=== PATIENT | female | born 1995 | race Two or more races ===

== ENCOUNTER 2022-11-10 07:40 | Emergency (ER) | payer MEDICAID, OTHER ==
[~2022-11-10] VITALS: Ht 154.9 cm; Wt 111.9 kg
[2022-11-10 07:53] VITALS: BP 119/78; PULSE 86; RESP 17; TEMP 98.9; O2SAT 97
[2022-11-10] MEDS ORDERED: QUET300T14 PO (10:19)
== END 2022-11-10 10:27 | disposition home or self-care (01) ==
LOC: ER 07:40
DX: F31.9 Bipolar disorder, unspecified (principal); F41.9 Anxiety disorder, unspecified; Z76.0 Encounter for issue of repeat prescription

== ENCOUNTER 2023-01-23 08:59 | Emergency (ER) | payer MEDICAID ==
[~2023-01-23] VITALS: Ht 154.9 cm; Wt 109.7 kg
[2023-01-23 08:59] VITALS: BP 124/81; PULSE 96; RESP 16; TEMP 97.1; O2SAT 97
[~2023-01-23 08:59] MED LIST: QUET300T14 PO
[2023-01-23] MEDS ORDERED: QUET300T14 PO (09:46)
== END 2023-01-23 09:49 | disposition home or self-care (01) ==
LOC: ER 08:59
DX: F31.9 Bipolar disorder, unspecified (principal); F41.9 Anxiety disorder, unspecified; Z76.0 Encounter for issue of repeat prescription

== ENCOUNTER 2023-03-08 08:53 | Emergency (ER) | payer MEDICAID ==
[~2023-03-08] VITALS: Ht 154.9 cm; Wt 110.8 kg
[2023-03-08 09:19] VITALS: BP 111/78; PULSE 93; RESP 16; TEMP 98.2; O2SAT 98
[2023-03-08] MEDS ORDERED: QUET300T14 PO (09:34)
== END 2023-03-08 09:40 | disposition home or self-care (01) ==
LOC: ER 08:53
DX: F41.9 Anxiety disorder, unspecified (principal); F31.9 Bipolar disorder, unspecified; Z76.0 Encounter for issue of repeat prescription; Z79.899 Other long term (current) drug therapy

== ENCOUNTER 2023-08-22 21:48 | Emergency (ER) | payer MEDICAID ==
[~2023-08-22] VITALS: Ht 154.9 cm; Wt 87.9 kg
[2023-08-23 02:32] VITALS: BP 107/73; PULSE 63; RESP 17; TEMP 97.4; O2SAT 100
[2023-08-23] MEDS ORDERED: QUET300T14 PO (02:35)
== END 2023-08-23 03:14 | disposition home or self-care (01) ==
LOC: ER 21:48
DX: F31.9 Bipolar disorder, unspecified (principal); F41.9 Anxiety disorder, unspecified; Z76.0 Encounter for issue of repeat prescription; Z79.899 Other long term (current) drug therapy

== ENCOUNTER 2024-01-09 09:57 | Emergency (ER) | payer MEDICAID ==
[~2024-01-09] VITALS: Ht 154.9 cm; Wt 81.4 kg
[2024-01-09 11:05] VITALS: BP 107/62; PULSE 77; RESP 14; TEMP 98.4; O2SAT 98
== END 2024-01-09 11:07 | disposition home or self-care (01) ==
LOC: ER 09:57
DX: F31.9 Bipolar disorder, unspecified (principal); F20.9 Schizophrenia, unspecified; F41.9 Anxiety disorder, unspecified; Z76.0 Encounter for issue of repeat prescription; Z79.899 Other long term (current) drug therapy

== ENCOUNTER 2024-03-16 07:59 | Emergency (ER) | payer MEDICAID ==
[~2024-03-16] VITALS: Ht 154.9 cm; Wt 82.0 kg
[2024-03-16] MEDS ORDERED: QUET300T14 PO (08:16)
--- NOTE | 2024-03-16 08:18 | ED.PDOC ---
History of Present Illness HPI Comments 28 y/o F, with a Hx of anxiety, bipolar disorder, and schizophrenia, presents [facility] c/o medication refill inquiry, today. Patient requests for her 300mg QD Seroquel medication for her anxiety and bipolar disorder to be refilled after running out of it 2x days ago. She denies having any symptoms at this time. Chief Complaint: Medical Clearance Time Seen by MD: 08:15 Primary Care Provider: ? Reviewed Notes: Nurses Notes, Medications, Allergies Allergies: Coded Allergies: NO KNOWN ALLERGIES (Unverified , 11/10/22) Home Meds Active Scripts Quetiapine Fumerate (Seroquel) 300 Mg Tab, 1 TAB PO QPM, #30 TAB 1 Refill Prov:JARRETT BENÍTEZ MD 03/16/24 Quetiapine Fumerate (Seroquel) 300 Mg Tab, 1 TAB PO QPM for 30 Days, #30 TAB 0 Refills Prov:ANDREA PARRA NP 02/11/24 Quetiapine Fumerate (Seroquel) 300 Mg Tab, 1 TAB PO QPM, #30 TAB 2 Refills Prov:YAMILETH ECHEVARRIA 08/23/23 Information Source: Patient Mode of Arrival: Ambulatory Severity: Moderate Timing: Days Duration: Since onset Prehospital treatment: None Past Medical History PAST MEDICAL HISTORY: Anxiety, Schizophrenia Past Medical History (Other): bipolar disorder Surgical History: Denies all surgeries SUPERVISOR FINISHING History: Denies all SUPERVISOR FINISHING Hx Family History Family History: Reviewed,noncontributory to illness Social History Smoker: Non-Smoker Alcohol: Denies ETOH Use Drugs: Denies Drug Use Lives In: Home All Other Systems: Reviewed and Negative (negative unless otherwise listed above or in HPI) Physical Exam General Appearance: No Apparent Distress, Normal HEENT: Normal ENT Inspection, Pharynx Normal, TMs Normal Neck: Full Range of Motion, Non-Tender, Normal, Normal Inspection Respiratory: Chest Non-Tender, Lungs Clear, No Accessory Muscle Use, No Respiratory Distress, Normal Breath Sounds Cardiovascular: No Edema, No JVD, No Murmur, No Gallop, Normal Peripheral Pulses, Regular Rate/Rhythm Breast Exam: Deferred Gastrointestinal: No Organomegaly, Non Tender, No Pulsatile Mass, Normal Bowel Sounds, Soft Genitalia: Deferred Pelvic: Deferred Rectal: Deferred Extremities: No calf tenderness, Normal capillary refill, Normal inspection, Normal range of motion, Non-tender, No pedal edema Musculoskeletal : Apperance: Normal Neurologic: Alert, felt finishing supervisor II-XII nml as Tested, No Motor Deficits, Normal Affect, Normal Mood, No Sensory Deficits Cerebellar Function: Normal Reflexes: Normal Skin: Dry, Normal Color, Warm Lymphatic: No Adenopathy Was a procedure done? Was a procedure done?: No Differential Dx Considerations may include: medication refill inquiry X-Ray, Labs, Meds, VS Vital Signs Date Time Temp Pulse Resp B/P (MAP) Pulse Ox O2 Delivery O2 Flow Rate FiO2 03/16/24 08:12 97.6 68 14 112/63 (79) 99 Time of 1ST Reevaluation: 08:45 Reevaluation 1ST: Unchanged Patient Education/Counseling: Diagnosis, Treatment, Prognosis, Need For Follow Up Family Education/Counseling: No Family Present Departure 1 Departure Time of Disposition: 08:21 Impression: Primary Impression: Bipolar 1 disorder, mixed Additional Impression: Medication refill Disposition: 01 HOME / SELF CARE / HOMELESS Condition: Good e-Prescriptions Quetiapine Fumerate (Seroquel) 300 Mg Tab 1 TAB PO QPM, #30 TAB 1 Refill Prov: JARRETT BENÍTEZ MD 03/16/24 Discharged With: Self Critical Care Note Critical Care Time?: No Stability Stability form required: No Heart Score Heart Score: Heart Score Response (Comments) Value History N/A 0 EKG N/A 0 Age N/A 0 Risk Factors N/A 0 Troponin N/A 0 Total 0 I personally scribed for JARRETT BENÍTEZ MD ([email or web address]) on 03/16/24 at 08:18. Electronically submitted by Jairo Boggs ([email or web address]). JARRETT BENÍTEZ MD Mar 16, 2024 08:18
[2024-03-16 08:24] VITALS: BP 105/61; PULSE 63; RESP 17; TEMP 97.8; O2SAT 98
== END 2024-03-16 08:27 | disposition home or self-care (01) ==
LOC: ER 07:59
DX: F31.60 Bipolar disorder, current episode mixed, unspecified (principal); F41.9 Anxiety disorder, unspecified; F20.9 Schizophrenia, unspecified; Z76.0 Encounter for issue of repeat prescription; Z79.899 Other long term (current) drug therapy

== ENCOUNTER 2024-06-07 07:26 | Emergency (ER) | payer MEDICAID ==
[~2024-06-07] VITALS: Ht 154.9 cm; Wt 80.8 kg
[2024-06-07 07:38] VITALS: BP 104/48; PULSE 65; RESP 20; TEMP 97.3; O2SAT 97
--- NOTE | 2024-06-07 07:56 | ED.PDOC ---
History of Present Illness HPI Comments 29 year old presents for medication refill. Chief Complaint: Mental Health Time Seen by MD: 07:35 Primary Care Provider: UNKNOWN Reviewed Notes: Nurses Notes, Medications, Allergies Allergies: Coded Allergies: NO KNOWN ALLERGIES (Unverified , 11/10/22) Home Meds Active Scripts Quetiapine Fumerate (Seroquel) 300 Mg Tab, 1 TAB PO QPM, #30 TAB 1 Refill Prov:FIDELANDREA F MAIL PROCESSING EQUIPMENT MECHANIC 06/07/24 Quetiapine Fumerate (Seroquel) 300 Mg Tab, 1 TAB PO QPM for 30 Days, #30 TAB 0 Refills Prov:LAKSHMI PARRAZbigniew Perez MAIL PROCESSING EQUIPMENT MECHANIC 02/11/24 Quetiapine Fumerate (Seroquel) 300 Mg Tab, 1 TAB PO QPM, #30 TAB 2 Refills Prov:YAMILETH ECHEVARRIA PAC 08/23/23 Information Source: Patient Mode of Arrival: Ambulatory Past Medical History PAST MEDICAL HISTORY: Anxiety, Schizophrenia Surgical History: Denies all surgeries BAR TURNER History: Denies all BAR TURNER Hx Family History Family History: Reviewed,noncontributory to illness Social History Smoker: Non-Smoker Alcohol: Denies ETOH Use Drugs: Denies Drug Use Lives In: Home All Other Systems: Reviewed and Negative (per hpi) Physical Exam General Appearance: No Apparent Distress, Normal HEENT: Normal ENT Inspection, Pharynx Normal, TMs Normal Neck: Full Range of Motion, Non-Tender, Normal, Normal Inspection Respiratory: Chest Non-Tender, Lungs Clear, No Accessory Muscle Use, No Respiratory Distress, Normal Breath Sounds Cardiovascular: No Murmur, No Gallop, Regular Rate/Rhythm Breast Exam: Deferred Gastrointestinal: No Organomegaly, Non Tender, No Pulsatile Mass, Normal Bowel Sounds, Soft Genitalia: Deferred Pelvic: Deferred Rectal: Deferred Extremities: No calf tenderness, Normal capillary refill, Normal inspection, Normal range of motion, Non-tender, No pedal edema Musculoskeletal : Apperance: Normal Neurologic: Alert, No Motor Deficits, Normal Affect, Normal Mood, No Sensory Deficits Cerebellar Function: Normal Reflexes: Normal Skin: Dry, Normal Color, Warm Lymphatic: No Adenopathy Was a procedure done? Was a procedure done?: No Differential Dx Considerations may include: anxiety X-Ray, Labs, Meds, VS Vital Signs Date Time Temp Pulse Resp B/P (MAP) Pulse Ox O2 Delivery O2 Flow Rate FiO2 3/24/25 07:38 97.3 65 20 104/48 (66) 97 97.3 06/07/24 07:38 65 20 97 Room Air 06/07/24 07:30 97.3 65 20 104/48 (66) 97 97.3 X-Ray, Labs, Meds, VS Comment Refill F/u with PCP Time of 1ST Reevaluation: 07:45 Reevaluation 1ST: Improved Patient Education/Counseling: Diagnosis, Treatment Family Education/Counseling: Diagnosis, Treatment Departure 1 Departure Time of Disposition: 07:55 Impression: Primary Impression: Encounter for medication refill Disposition: 01 HOME / SELF CARE / HOMELESS Condition: Stable e-Prescriptions Quetiapine Fumerate (Seroquel) 300 Mg Tab 1 TAB PO QPM, #30 TAB 1 Refill Prov: ANDREA PARRA MAIL PROCESSING EQUIPMENT MECHANIC 06/07/24 Critical Care Note Critical Care Time?: No Stability Stability form required: No Heart Score Heart Score: Heart Score Response (Comments) Value History N/A 0 EKG N/A 0 Age N/A 0 Risk Factors N/A 0 Troponin N/A 0 Total 0 ANDREA PARRA MAIL PROCESSING EQUIPMENT MECHANIC Jun 07, 2024 07:56
== END 2024-06-07 07:57 | disposition home or self-care (01) ==
LOC: ER 07:26
DX: F20.9 Schizophrenia, unspecified (principal); Z76.0 Encounter for issue of repeat prescription; Z79.899 Other long term (current) drug therapy

== ENCOUNTER 2024-10-20 21:17 | Emergency (ER) | payer MEDICAID ==
[~2024-10-20] VITALS: Ht 154.9 cm; Wt 55.4 kg
[2024-10-20 21:52] LABS: Hematocrit 43.5 % (36.0-46.0); Hemoglobin 14.7 g/dL (12.2-16.2); Mean Corpuscular Hemoglobin 30.1 pg (28.0-32.0); Mean Corpuscular Volume 89.1 fL (80.0-100.0); Nucleated Red Blood Cells % 0.0 %
[2024-10-20 21:57] LABS: Chloride 105 mmol/L (98-107); Potassium 3.8 mmol/L (3.5-5.1); Sodium 139 mmol/L (136-145)
[2024-10-20 21:58] LABS: Anion Gap 6 (5-15); Calcium 9.5 mg/dL (8.7-10.4); Carbon Dioxide 28 mmol/L (20-31)
[2024-10-20 22:03] LABS: BUN/Creatinine Ratio 11.3 (10.0-20.0); Glucose 104 mg/dL (74-106)
[2024-10-20 22:05] LABS: Blood Urea Nitrogen 8 mg/dL (9-23)
[2024-10-21 00:13] VITALS: PULSE 86; RESP 20; O2SAT 99
--- NOTE | 2024-10-21 01:04 | ED.PDOC ---
History of Present Illness HPI Comments 29-year-old female with past medical history of anxiety, schizophrenia presenting for evaluation of generalized fatigue, lightheadedness over the past couple of days. The patient states that she had a lot of unprotected sex last month and took a lot of plan B. She denies any current abnormal vaginal discharge or pelvic discomfort despite the triage note indicates. Last menstrual cycle was approximately 4 weeks ago, she is supposed to get her menstrual cycles in. She states that she took a test yesterday that was negative. Patient reports that due to the generalized fatigue she wanted to get some labs checked out to make sure that she is okay. Patient did not have a near fainting event. Chief Complaint: Syncope Time Seen by MD: 21:34 Primary Care Provider: UNKNOWN Allergies: Coded Allergies: NO KNOWN ALLERGIES (Unverified , 11/10/22) Home Meds Active Scripts Quetiapine Fumerate (Seroquel) 300 Mg Tab, 1 TAB PO QPM, #30 TAB 1 Refill Prov:ANDREA PARRA STUDENT AFFAIRS VICE PRESIDENT 06/07/24 Quetiapine Fumerate (Seroquel) 300 Mg Tab, 1 TAB PO QPM for 30 Days, #30 TAB 0 Refills Prov:ANDREA PARRA STUDENT AFFAIRS VICE PRESIDENT 02/11/24 Quetiapine Fumerate (Seroquel) 300 Mg Tab, 1 TAB PO QPM, #30 TAB 2 Refills Prov:YAMILETH ECHEVARRIA PAC 08/23/23 Mode of Arrival: Ambulatory Severity: Mild Past Medical History PAST MEDICAL HISTORY: Anxiety, Schizophrenia Surgical History: Denies all surgeries WAXER History: Denies all WAXER Hx Family History Family History: Reviewed,noncontributory to illness Social History Smoker: Non-Smoker Alcohol: Denies ETOH Use Drugs: Denies Drug Use Lives In: Home Constitutional: reports: fatigue, malaise EENTM: denies: blurred vision, double vision, ear bleeding, ear discharge, ear drainage, ear pain, ear ringing, eye pain, eye redness, hearing loss, mouth pain, mouth swelling, nasal discharge, nose bleeding, nose congestion, nose pain, photophobia, tearing, throat pain, throat swelling, voice changes, others Respiratory: denies: cough, hemoptysis, orthopnea, SOB at rest, shortness of breath, SOB with excertion, stridor, wheezing, others Cardiovascular: denies: chest pain, dizzy spells, diaphoresis, Dyspnea on exertion, edema, irregular heart beat, left arm pain, lightheadedness, palpitations, PND, syncope, others Gastrointestinal: denies: abdomen distended, abdominal pain, blood streaked bowels, constipated, diarrhea, dysphagia, difficulty swallowing, hematemesis, melena, nausea, poor appetite, poor fluid intake, rectal bleeding, rectal pain, vomiting, others Genitourinary: denies: abnormal vagina bleeding, burning, dyspareunia, dysuria, flank pain, frequency, hematuria, incontinence, pain, , vagina discharge, urgency, others Neurological: denies: dizziness, fainting, headache, left sided numbness, left sided weakness, numbness, paresthesia, pre-existing deficit, right sided numbness, right sided weakness, seizure, speech problems, tingling, tremors, weakness, others Musculoskeletal: denies: back pain, gout, joint pain, joint swelling, muscle pain, muscle stiffness, neck pain, others Integumetry: denies: bruises, change in color, change in hair/nails, dryness, laceration, lesions, lumps, rash, wounds, others Allergic/Immunocompromised: denies: Difficulty Healing, Frequent Infections, Hives, Itching, others Hematologic/Lymphatic: denies: anemia, blood clots, easy bleeding, easy bruising, swollen glands, others Endocrine: denies: excessive hunger, excessive sweating, excessive thirst, excessive urination, flushing, intolerance to cold, intolerance to heat, unexplained weight gain, unexplained weight loss, others Physical Exam General Appearance: Normal HEENT: PERRL/EOMI Neck: Normal Respiratory: Lungs Clear, No Accessory Muscle Use, Normal Breath Sounds Cardiovascular: Normal Peripheral Pulses, Regular Rate/Rhythm Breast Exam: Deferred Gastrointestinal: Non Tender Genitalia: Deferred Pelvic: Deferred Rectal: Deferred Extremities: Normal range of motion Neurologic: Alert Cerebellar Function: Normal Reflexes: NOT DONE Skin: Normal Color Lymphatic: NOT DONE Was a procedure done? Was a procedure done?: No Differential Dx Considerations may include: Anemia vs vs stress/anxiety X-Ray, Labs, Meds, VS Vital Signs Date Time Temp Pulse Resp B/P (MAP) Pulse Ox O2 Delivery O2 Flow Rate FiO2 10/21/24 00:13 98.1 86 18 108/75 (86) 99 98.1 10/21/24 00:13 86 20 99 Room Air* 0 21 10/20/24 21:24 98.2 80 17 106/80 99 98.2 Lab Test 10/20/24 21:40 Range/Units White Blood Count 8.1 4.4-10.8 10^3/uL Red Blood Count 4.89 4.0-5.20 10^6/uL Hemoglobin 14.7 12.2-16.2 g/dL Hematocrit 43.5 36.0-46.0 % Mean Corpuscular Volume 89.1 80.0-100.0 fL Mean Corpuscular Hemoglobin 30.1 28.0-32.0 pg Mean Corpuscular Hemoglobin Concent 33.8 32.0-36.0 g/dL Red Cell Distribution Width 13.0 11.8-14.3 % Platelet Count 309 140-450 10^3/uL Mean Platelet Volume 7.7 6.9-10.8 fL Neutrophils (%) (Auto) 64.5 37.0-80.0 % Lymphocytes (%) (Auto) 27.0 10.0-50.0 % Monocytes (%) (Auto) 6.7 0.0-12.0 % Eosinophils (%) (Auto) 0.9 0.0-7.0 % Basophils (%) (Auto) 0.9 0.0-2.0 % Neutrophils # (Auto) 5.3 1.6-8.6 10 ^3/uL Lymphocytes # (Auto) 2.2 0.4-5.4 10 ^3/uL Monocytes # (Auto) 0.5 0-1.3 10 ^3/uL Eosinophils # (Auto) 0.1 0-0.8 10 ^3/uL Basophils # (Auto) 0.1 0-0.2 10 ^3/uL Nucleated Red Blood Cells 0.0 % Sodium Level 139 136-145 mmol/L Potassium Level 3.8 3.5-5.1 mmol/L Chloride Level 105 98-107 mmol/L Carbon Dioxide Level 28 20-31 mmol/L Anion Gap 6 5-15 Blood Urea Nitrogen 8 L 9-23 mg/dL Creatinine 0.71 0.550-1.02 mg/dL Glomerular Filtration Rate Calc 119 >90 mL/min BUN/Creatinine Ratio 11.3 10.0-20.0 Serum Glucose 104 74-106 mg/dL Calcium Level 9.5 8.7-10.4 mg/dL Time of 1ST Reevaluation: 00:56 (Patient is currently asymptomatic.) Reevaluation 1ST: Improved Patient Education/Counseling: Diagnosis, Need For Follow Up Family Education/Counseling: No Family Present SEPSIS Sepsis Screen Date sepsis recognized/suspect: Oct 20, 2024 Time Sepsis recognized/suspect: 2123 Recent Procedure: No On Antibiotic Therapy: No Respiratory Rate >20: No Heart Rate >90: No Temp<36 C (96.8 F) or >38.3 C: No SBP <90 or MAP <65 mmHG: No New Acute Mental Status Change: No Is the patient on CPAP, BIPAP,: No Vital Signs Date Time Temp Pulse Resp B/P (MAP) Pulse Ox O2 Delivery O2 Flow Rate FiO2 10/21/24 00:13 98.1 86 18 108/75 (86) 99 98.1 10/21/24 00:13 86 20 99 Room Air* 0 21 10/20/24 21:24 98.2 80 17 106/80 99 98.2 Laboratory Tests Test 10/20/24 21:40 White Blood Count 8.1 10^3/uL (4.4-10.8) Departure 1 Departure Time of Disposition: 00:59 (Patient reporting symptoms of generalized fatigue, concerned that she has had unprotected sex and has taken a lot of plan B pills over the past month. Patient's last menstrual cycle was approximately 4 weeks ago. She just took a test within the past 24 hours that was negative, does not seem consistent with related symptoms. Patient is not currently having any vaginal bleeding. However, given the reports of fatigue consider possible anemia. CBC was obtained which shows no evidence of significant anemia or critical leukocytosis. The patient is not currently having any abnormal vaginal discharge or vaginal discomfort, does not require any STI testing. Patient advised on warning signs to look out for and advised to return if she goes on to develop STI type symptoms to get tested, treated. Given the fatigue a basic metabolic panel was obtained which came back within normal limits with no evidence of acute electrolyte abnormalities or acute kidney insufficiency. Patient here has normal physical examination, has stable vitals. Patient with no recent infectious symptoms to suggest infectious etiology. Symptoms may be related to her underlying anxiety, stress.Symptoms could also be related to menstrual cycle that is about to begin given that her last LMP was approximately 4 weeks ago. Patient at this time does not appear to have any acute life-threatening process. Stable for discharge for further outpatient workup and management by primary care doctor.) Impression: Primary Impression: Fatigue Disposition: 01 HOME / SELF CARE / HOMELESS Condition: Stable Critical Care Note Critical Care Time?: No Stability Stability form required: BERENICE Arthur MD Oct 21, 2024 01:04
[2024-10-22] MEDS ORDERED: QUET300T14 PO (09:21)
== END 2024-10-21 01:06 | disposition home or self-care (01) ==
LOC: ER 21:17
DX: R42 Dizziness and giddiness (principal); R53.83 Other fatigue; F20.9 Schizophrenia, unspecified
CPT/HCPCS: 36415; 80048; 85025

== ENCOUNTER 2024-10-22 08:42 | Emergency (ER) | payer MEDICAID ==
[~2024-10-22] VITALS: Ht 154.9 cm; Wt 76.0 kg
[2024-10-22 08:47] VITALS: BP 112/69; PULSE 84; RESP 18; TEMP 97.8; O2SAT 98
--- NOTE | 2024-10-22 09:20 | ED.PDOC ---
History of Present Illness HPI Comments A 29 YEAR OLD FEMALE PRESENTS TO THE ED FOR MEDICATION REFILL OF SEROQUEL 300MG QD. PATIENT HAS BEEN OUT FOR THE PAST 3-4 DAYS. PATIENT STATES BEING SEEN PREVIOUSLY FOR REFILL AND HAS BEEN GIVEN A 30 DAY SUPPLY MEANWHILE SHE OBTAINS A PCP TO MANAGE HER REFILLS. PATIENT DENIES FEVER, CHILLS, SHORTNESS OF BREATH, CHEST PAIN, ABDOMINAL PAIN, NAUSEA, VOMITING, HEADACHE, OR OTHER COMPLAINTS. NO OTHER SYMPTOMS OR MODIFYING FACTORS AT THIS TIME. PATIENT IS ALERT, ORIENTED X 4, AND HAS STEADY GAIT. Chief Complaint: Mental Health Time Seen by MD: 09:11 Primary Care Provider: UNKNOWN Reviewed Notes: Nurses Notes, Medications, Allergies Allergies: Coded Allergies: NO KNOWN ALLERGIES (Unverified , 11/10/22) Home Meds Active Scripts Quetiapine Fumerate (Seroquel) 300 Mg Tab, 1 TAB PO QPM, #30 TAB Prov:CAYDEN VALERO 10/22/24 Quetiapine Fumerate (Seroquel) 300 Mg Tab, 1 TAB PO QPM, #30 TAB 1 Refill Prov:ANDREA PARRA MACHINE ASSEMBLER SUPERVISOR 06/07/24 Quetiapine Fumerate (Seroquel) 300 Mg Tab, 1 TAB PO QPM for 30 Days, #30 TAB 0 Refills Prov:ANDREA PARRA MACHINE ASSEMBLER SUPERVISOR 02/11/24 Information Source: Patient Mode of Arrival: Ambulatory Severity: Mild Timing: Days Duration: Since onset Medication Refill: Ran out of Medication, For: Psychiatric Past Medical History PAST MEDICAL HISTORY: Anxiety, Schizophrenia Surgical History: Denies all surgeries ORACLE HRMS DEVELOPER History: Denies all ORACLE HRMS DEVELOPER Hx Family History Family History: Reviewed,noncontributory to illness Social History Smoker: Non-Smoker Alcohol: Denies ETOH Use Drugs: Denies Drug Use Lives In: Home Constitutional: denies: chills, diaphoresis, fatigue, fever, malaise, sweats, weakness, others EENTM: denies: blurred vision, double vision, ear bleeding, ear discharge, ear drainage, ear pain, ear ringing, eye pain, eye redness, hearing loss, mouth pain, mouth swelling, nasal discharge, nose bleeding, nose congestion, nose pain, photophobia, tearing, throat pain, throat swelling, voice changes, others Respiratory: denies: cough, hemoptysis, orthopnea, SOB at rest, shortness of breath, SOB with excertion, stridor, wheezing, others Cardiovascular: denies: chest pain, dizzy spells, diaphoresis, Dyspnea on ex ertion, edema, irregular heart beat, left arm pain, lightheadedness, palpitations, PND, syncope, others Gastrointestinal: denies: abdomen distended, abdominal pain, blood streaked bowels, constipated, diarrhea, dysphagia, difficulty swallowing, hematemesis, melena, nausea, poor appetite, poor fluid intake, rectal bleeding, rectal pain, vomiting, others Genitourinary: denies: abnormal vagina bleeding, burning, dyspareunia, dysuria, flank pain, frequency, hematuria, incontinence, pain, , vagina discharge, urgency, others Neurological: denies: dizziness, fainting, headache, left sided numbness, left sided weakness, numbness, paresthesia, pre-existing deficit, right sided numbness, right sided weakness, seizure, speech problems, tingling, tremors, weakness, others Musculoskeletal: denies: back pain, gout, joint pain, joint swelling, muscle pain, muscle stiffness, neck pain, others Integumetry: denies: bruises, change in color, change in hair/nails, dryness, laceration, lesions, lumps, rash, wounds, others Allergic/Immunocompromised: denies: Difficulty Healing, Frequent Infections, Hives, Itching, others Hematologic/Lymphatic: denies: anemia, blood clots, easy bleeding, easy bruising, swollen glands, others Endocrine: denies: excessive hunger, excessive sweating, excessive thirst, excessive urination, flushing, intolerance to cold, intolerance to heat, unexplained weight gain, unexplained weight loss, others Psychiatric: denies: anxiety, bipolar disorder, depression, hopeless, panic disorder, schizophrenia, sleepless, suicidal, others All Other Systems: Reviewed and Negative Physical Exam General Appearance: No Apparent Distress, Normal HEENT: Normal ENT Inspection, Pharynx Normal, TMs Normal Neck: Full Range of Motion, Non-Tender, Normal, Normal Inspection Respiratory: Chest Non-Tender, Lungs Clear, No Accessory Muscle Use, No Respiratory Distress, Normal Breath Sounds Cardiovascular: No Edema, No JVD, No Murmur, No Gallop, Normal Peripheral Pulses, Regular Rate/Rhythm Breast Exam: Deferred Gastrointestinal: No Organomegaly, Non Tender, No Pulsatile Mass, Normal Bowel Sounds, Soft Genitalia: Deferred Pelvic: Deferred Rectal: Deferred Extremities: No calf tenderness, Normal capillary refill, Normal inspection, Normal range of motion, Non-tender, No pedal edema Musculoskeletal : Apperance: Normal Neurologic: Alert, pickle sorter II-XII nml as Tested, No Motor Deficits, Normal Affect, Normal Mood, No Sensory Deficits Cerebellar Function: Normal Reflexes: Normal Skin: Dry, Normal Color, Warm Peripheral Pulses: 2+ carotid (R), 2+ carotid (L) Lymphatic: No Adenopathy Was a procedure done? Was a procedure done?: No Differential Dx Considerations may include: MEDICATION REFILL X-Ray, Labs, Meds, VS Vital Signs Date Time Temp Pulse Resp B/P (MAP) Pulse Ox O2 Delivery O2 Flow Rate FiO2 10/22/24 08:47 97.8 84 18 112/69 98 97.8 X-Ray, Labs, Meds, VS Comment EXTERNAL MEDICAL RECORDS REVIEWED: [NONE] INDEPENDENT HISTORIANS: [NONE] SOCIAL DETERMINANTS OF HEALTH: [NONE] LABS ORDERED: NONE REVIEWED AND INTERPRETED RESULTS: NONE IMAGING ORDERED: NONE TREATMENTS ORDERED: PROCEDURES PERFORMED: NONE CRITICAL CARE TIME: NONE I HAVE DISCUSSED THE PATIENT WITH THE ATTENDING PHYSICIAN AND HE AGREES WITH THE PATIENT'S PLAN OF CARE AND DISPOSITION. BASED ON HISTORY OF PRESENT ILLNESS, AND PHYSICAL EXAM, PATIENT WILL BE DISCHARGED HOME. DISCUSSED PLAN FOR DISCHARGE HOME WITH RX SEROQUEL 300MG QD. MEDICATION WARNINGS GIVEN. SHARED DECISION MAKING: DISCUSSED WITH PATIENT THAT THEIR WORKUP WAS NORMAL. PATIENT INSTRUCTED TO FOLLOW UP WITH PRIMARY CARE PROVIDER IN 1-2 DAYS FOR RE- EVALUATION OF SYMPTOMS. PATIENT VERBALIZES UNDERSTANDING TO RETURN TO ED FOR NEW OR WORSENING SYMPTOMS OR IF FOLLOW UP WITH PCP CANNOT BE OBTAINED. PATIENT FEELS COMFORTABLE GOING HOME AT THIS TIME. ALL QUESTIONS ADDRESSED AT TIME OF DISCHARGE. Time of 1ST Reevaluation: 09:23 Reevaluation 1ST: Resolved Patient Education/Counseling: Diagnosis, Treatment, Need For Follow Up Family Education/Counseling: Diagnosis, Treatment, No Family Present Medical Screening: No EMC Exist At This Time SEPSIS Sepsis Screen Date sepsis recognized/suspect: Oct 22, 2024 Time Sepsis recognized/suspect: 0848 Recent Procedure: No On Antibiotic Therapy: No Respiratory Rate >20: No Heart Rate >90: No Temp<36 C (96.8 F) or >38.3 C: No SBP <90 or MAP <65 mmHG: No New Acute Mental Status Change: No Is the patient on CPAP, BIPAP,: No Vital Signs Date Time Temp Pulse Resp B/P (MAP) Pulse Ox O2 Delivery O2 Flow Rate FiO2 10/22/24 08:47 97.8 84 18 112/69 98 97.8 Departure 1 Departure Time of Disposition: 09:23 Impression: Primary Impression: Medication refill Additional Impression: Hx of schizophrenia Disposition: HOME / SELF CARE / HOMELESS Condition: Stable Additional Instructions: FOLLOW-UP WITH PCP IN 1 TO 2 DAYS. TAKE MEDICATIONS PRESCRIBED. e-Prescriptions Quetiapine Fumerate (Seroquel) 300 Mg Tab 1 TAB PO QPM, #30 TAB Prov: CAYDEN VALERO 10/22/24 Discharged With: Self Critical Care Note Critical Care Time?: No Stability Stability form required: No I personally scribed for CAYDEN VALERO ([email or web address]) on 10/22/24 at 09:20. Electronically submitted by Sadia Skinner ([facility]). CAYDEN VALERO Oct 22, 2024 09:20
[2024-10-22] MEDS ORDERED: QUET300T14 PO (09:21)
== END 2024-10-22 09:24 | disposition home or self-care (01) ==
LOC: ER 08:42
DX: F20.9 Schizophrenia, unspecified (principal); Z76.0 Encounter for issue of repeat prescription; Z79.899 Other long term (current) drug therapy

== ENCOUNTER 2024-12-25 07:25 | Emergency (ER) | payer MEDICAID ==
[~2024-12-25] VITALS: Ht 154.9 cm; Wt 75.3 kg
[2024-12-25 07:26] VITALS: BP 122/80; PULSE 79; RESP 18; TEMP 98.3; O2SAT 99
--- NOTE | 2024-12-25 07:41 | ED.PDOC ---
History of Present Illness HPI Comments 29-year-old female presents to the ER with a chief complaint of a medication refill. Patient reports that she ran out of her cervical and needs a refill. Patient notes on looking for a psychiatric doctor at this time. Denies chills, fever, N/V/D, SOB, CP. No other associated symptoms, modifiers, recent injuries or sick contacts present at this time. Chief Complaint: Mental Health Time Seen by MD: 07:40 Primary Care Provider: UNKNOWN Reviewed Notes: Nurses Notes, Medications, Allergies Allergies: Coded Allergies: NO KNOWN ALLERGIES (Unverified , 11/10/22) Home Meds Active Scripts Quetiapine Fumerate (Seroquel) 300 Mg Tab, 1 TAB PO QPM for 30 Days, #30 TAB 1 Refill Prov:CATALINA YU MD 12/25/24 Quetiapine Fumerate (Seroquel) 300 Mg Tab, 1 TAB PO QPM, #30 TAB Prov:CAYDEN VALERO 10/22/24 Quetiapine Fumerate (Seroquel) 300 Mg Tab, 1 TAB PO QPM, #30 TAB 1 Refill Prov:ANDREA PARRA NP 06/07/24 Quetiapine Fumerate (Seroquel) 300 Mg Tab, 1 TAB PO QPM for 30 Days, #30 TAB 0 Refills Prov:ANDREA PARRA NP 02/11/24 Information Source: Patient Mode of Arrival: Ambulatory Severity: Moderate Timing: Came on: Gradually Duration: Since onset Prehospital treatment: None Medication Refill: Ran out of Medication, For: Psychiatric Past Medical History PAST MEDICAL HISTORY: Anxiety, Schizophrenia Surgical History: Denies all surgeries LIBRARIAN HELPER History: Denies all LIBRARIAN HELPER Hx Family History Family History: Reviewed,noncontributory to illness, Unknown Social History Smoker: Non-Smoker Alcohol: Denies ETOH Use Drugs: Denies Drug Use Lives In: Home Constitutional: reports: others (Med refill); denies: chills, diaphoresis, fatigue, fever, malaise, sweats, weakness EENTM: denies: blurred vision, double vision, ear bleeding, ear discharge, ear drainage, ear pain, ear ringing, eye pain, eye redness, hearing loss, mouth pain, mouth swelling, nasal discharge, nose bleeding, nose congestion, nose pain, photophobia, tearing, throat pain, throat swelling, voice changes, others Respiratory: denies: cough, hemoptysis, orthopnea, SOB at rest, shortness of breath, SOB with excertion, stridor, wheezing, others Cardiovascular: denies: chest pain, dizzy spells, diaphoresis, Dyspnea on exertion, edema, irregular heart beat, left arm pain, lightheadedness, palpitations, PND, syncope, others Gastrointestinal: denies: abdomen distended, abdominal pain, blood streaked bowels, constipated, diarrhea, dysphagia, difficulty swallowing, hematemesis, melena, nausea, poor appetite, poor fluid intake, rectal bleeding, rectal pain, vomiting, others Genitourinary: denies: abnormal vagina bleeding, burning, dyspareunia, dysuria, flank pain, frequency, hematuria, incontinence, pain, , vagina discharge, urgency, others Neurological: denies: dizziness, fainting, headache, left sided numbness, left sided weakness, numbness, paresthesia, pre-existing deficit, right sided numbness, right sided weakness, seizure, speech problems, tingling, tremors, weakness, others Musculoskeletal: denies: back pain, gout, joint pain, joint swelling, muscle pain, muscle stiffness, neck pain, others Integumetry: denies: bruises, change in color, change in hair/nails, dryness, laceration, lesions, lumps, rash, wounds, others Allergic/Immunocompromised: denies: Difficulty Healing, Frequent Infections, Hives, Itching, others Hematologic/Lymphatic: denies: anemia, blood clots, easy bleeding, easy bruising, swollen glands, others Endocrine: denies: excessive hunger, excessive sweating, excessive thirst, excessive urination, flushing, intolerance to cold, intolerance to heat, unexplained weight gain, unexplained weight loss, others Psychiatric: denies: anxiety, bipolar disorder, depression, hopeless, panic disorder, schizophrenia, sleepless, suicidal, others All Other Systems: Reviewed and Negative Physical Exam General Appearance: No Apparent Distress, Normal HEENT: Normal ENT Inspection, PERRL/EOMI, Pharynx Normal, TMs Normal Neck: Full Range of Motion, Non-Tender, Normal, Normal Inspection Respiratory: Chest Non-Tender, Lungs Clear, No Accessory Muscle Use, No Respiratory Distress, Normal Breath Sounds Cardiovascular: No Edema, No JVD, No Murmur, No Gallop, Normal Peripheral Pulses, Regular Rate/Rhythm Breast Exam: Deferred Gastrointestinal: No Organomegaly, Non Tender, No Pulsatile Mass, Normal Bowel Sounds, Soft Genitalia: Deferred Pelvic: Deferred Rectal: Deferred Extremities: No calf tenderness, Normal capillary refill, Normal inspection, Normal range of motion, Non-tender, No pedal edema Musculoskeletal : Apperance: Normal Neurologic: Alert, room service associate II-XII nml as Tested, No Motor Deficits, Normal Affect, Normal Mood, No Sensory Deficits Cerebellar Function: Normal Reflexes: Normal Skin: Dry, Normal Color, Warm Peripheral Pulses: 1+ carotid (R), 1+ carotid (L) Lymphatic: No Adenopathy Was a procedure done? Was a procedure done?: No Differential Dx Considerations may include: Patient here for medication refill bipolar disorder X-Ray, Labs, Meds, VS Vital Signs Date Time Temp Pulse Resp B/P (MAP) Pulse Ox O2 Delivery O2 Flow Rate FiO2 12/25/24 07:26 98.3 79 18 122/80 99 98.3 Time of 1ST Reevaluation: 08:10 Reevaluation 1ST: Unchanged Time of 2ND Reevaluation: 08:07 Reevaluation 2ND: Unchanged Consultation: PCP Patient Education/Counseling: Diagnosis, Treatment, Prognosis, Need For Follow Up Family Education/Counseling: Diagnosis, Treatment, Prognosis, Need For Follow Up, No Family Present SEPSIS Sepsis Screen Date sepsis recognized/suspect: Dec 25, 2024 Time Sepsis recognized/suspect: 726 Recent Procedure: No On Antibiotic Therapy: No Respiratory Rate >20: No Heart Rate >90: No Temp<36 C (96.8 F) or >38.3 C: No SBP <90 or MAP <65 mmHG: No New Acute Mental Status Change: No Is the patient on CPAP, BIPAP,: No Vital Signs Date Time Temp Pulse Resp B/P (MAP) Pulse Ox O2 Delivery O2 Flow Rate FiO2 12/25/24 07:26 98.3 79 18 122/80 99 98.3 Departure 1 Departure Time of Disposition: 07:43 Impression: Primary Impression: Bipolar 1 disorder, mixed Additional Impression: Encounter for medication refill Disposition: HOME / SELF CARE / HOMELESS Condition: Fair Additional Instructions: Put you Psychiatry e-Prescriptions Quetiapine Fumerate (Seroquel) 300 Mg Tab 1 TAB PO QPM for 30 Days, #30 TAB 1 Refill Prov: CATALINA YU MD 12/25/24 Discharged With: Self Critical Care Note Critical Care Time?: No Stability Stability form required: No Heart Score Heart Score: Heart Score Response (Comments) Value History N/A 0 EKG N/A 0 Age <45 0 Risk Factors No known risk factors 0 Troponin N/A 0 Total 0 I personally scribed for CATALINA YU MD ([email or web address]) on 12/25/24 at 07:41. Electronically submitted by Lee Casas ([email or web address]). ACTALINA YU MD Dec 25, 2024 07:41
[2024-12-25] MEDS ORDERED: QUET300T14 PO (07:45)
== END 2024-12-25 07:56 | disposition home or self-care (01) ==
LOC: ER 07:28
DX: F31.60 Bipolar disorder, current episode mixed, unspecified (principal); F20.9 Schizophrenia, unspecified; F41.9 Anxiety disorder, unspecified; Z76.0 Encounter for issue of repeat prescription; Z79.899 Other long term (current) drug therapy

== ENCOUNTER 2025-03-12 06:29 | Emergency (ER) | payer MEDICAID ==
[~2025-03-12] VITALS: Ht 165.1 cm; Wt 83.8 kg
[2025-03-12 07:26] VITALS: BP 104/75; PULSE 81; RESP 17; TEMP 98.5; O2SAT 98
--- NOTE | 2025-03-12 07:29 | ED.PDOC ---
History of Present Illness HPI Comments Patient came to the fast track to refill her medication . Patient promised to follow up when her psychiatrist for further care Chief Complaint: Medical Clearance Time Seen by MD: 07:08 Primary Care Provider: UNKNOWN Reviewed Notes: Nurses Notes, Medications, Allergies Allergies: Coded Allergies: NO KNOWN ALLERGIES (Unverified , 11/10/22) Home Meds Active Scripts Quetiapine Fumerate (Seroquel) 300 Mg Tab, 1 TAB PO QPM for 30 Days, #30 TAB 1 Refill Prov:CATALINA YU MD 03/12/25 Quetiapine Fumerate (Seroquel) 300 Mg Tab, 1 TAB PO QPM for 30 Days, #30 TAB 1 Refill Prov:CATALINA YU MD 12/25/24 Quetiapine Fumerate (Seroquel) 300 Mg Tab, 1 TAB PO QPM, #30 TAB Prov:CAYDEN VALERO 10/22/24 Quetiapine Fumerate (Seroquel) 300 Mg Tab, 1 TAB PO QPM, #30 TAB 1 Refill Prov:ANDREA PARRA NP 06/07/24 Quetiapine Fumerate (Seroquel) 300 Mg Tab, 1 TAB PO QPM for 30 Days, #30 TAB 0 Refills Prov:ANDREA PARRA NP 02/11/24 Information Source: Patient Mode of Arrival: Ambulatory Severity: Moderate Timing: Days Duration: Since onset Medication Refill: Ran out of Medication Past Medical History PAST MEDICAL HISTORY: Anxiety, Schizophrenia Surgical History: Denies all surgeries FIRESETTER History: Denies all FIRESETTER Hx Family History Family History: Reviewed,noncontributory to illness, Unknown Social History Smoker: Non-Smoker Alcohol: Denies ETOH Use Drugs: Denies Drug Use Lives In: Home Constitutional: denies: chills, diaphoresis, fatigue, fever, malaise, sweats, weakness, others EENTM: denies: blurred vision, double vision, ear bleeding, ear discharge, ear drainage, ear pain, ear ringing, eye pain, eye redness, hearing loss, mouth pain, mouth swelling, nasal discharge, nose bleeding, nose congestion, nose pain, photophobia, tearing, throat pain, throat swelling, voice changes, others Respiratory: denies: cough, hemoptysis, orthopnea, SOB at rest, shortness of breath, SOB with excertion, stridor, wheezing, others Cardiovascular: denies: chest pain, dizzy spells, diaphoresis, Dyspnea on exertion, edema, irregular heart beat, left arm pain, lightheadedness, palpitations, PND, syncope, others Gastrointestinal: denies: abdomen distended, abdominal pain, blood streaked bowels, constipated, diarrhea, dysphagia, difficulty swallowing, hematemesis, melena, nausea, poor appetite, poor fluid intake, rectal bleeding, rectal pain, vomiting, others Genitourinary: denies: abnormal vagina bleeding, burning, dyspareunia, dysuria, flank pain, frequency, hematuria, incontinence, pain, , vagina discharge, urgency, others Neurological: denies: dizziness, fainting, headache, left sided numbness, left sided weakness, numbness, paresthesia, pre-existing deficit, right sided numbness, right sided weakness, seizure, speech problems, tingling, tremors, weakness, others Musculoskeletal: denies: back pain, gout, joint pain, joint swelling, muscle pain, muscle stiffness, neck pain, others Integumetry: denies: bruises, change in color, change in hair/nails, dryness, laceration, lesions, lumps, rash, wounds, others Allergic/Immunocompromised: denies: Difficulty Healing, Frequent Infections, Hives, Itching, others Endocrine: denies: excessive hunger, excessive sweating, excessive thirst, excessive urination, flushing, intolerance to cold, intolerance to heat, unexplained weight gain, unexplained weight loss, others Psychiatric: reports: anxiety, bipolar disorder All Other Systems: Reviewed and Negative Physical Exam General Appearance: No Apparent Distress, Normal HEENT: Normal ENT Inspection, Pharynx Normal, TMs Normal Neck: Full Range of Motion, Non-Tender, Normal, Normal Inspection Respiratory: Chest Non-Tender, Lungs Clear, No Accessory Muscle Use, No Respiratory Distress, Normal Breath Sounds Cardiovascular: No Edema, No JVD, No Murmur, No Gallop, Normal Peripheral Pulses, Regular Rate/Rhythm Breast Exam: Deferred Gastrointestinal: No Organomegaly, Non Tender, No Pulsatile Mass, Normal Bowel Sounds, Soft Genitalia: Deferred Pelvic: Deferred Rectal: Deferred Extremities: No calf tenderness, Normal capillary refill, Normal inspection, Normal range of motion, Non-tender, No pedal edema Neurologic: Alert, environmental health nurse II-XII nml as Tested, No Motor Deficits, Normal Affect, Normal Mood, No Sensory Deficits Cerebellar Function: Normal Reflexes: Normal Skin: Dry, Normal Color, Warm Lymphatic: No Adenopathy Was a procedure done? Was a procedure done?: No Differential Dx Considerations may include: Patient came for refill on medications forearm bipolar and schizophrenia X-Ray, Labs, Meds, VS Vital Signs Date Time Temp Pulse Resp B/P (MAP) Pulse Ox O2 Delivery O2 Flow Rate FiO2 03/12/25 07:26 98.5 81 17 104/75 (85) 98 98.5 03/12/25 06:32 97.7 73 14 103/65 97 97.7 X-Ray, Labs, Meds, VS Comment course in the fast track event full patient has been refeeding her medication without seeing a psychiatrist Urged to this patient to see a psychiatrist for follow up and refill her medications and evaluate her properly Time of 1ST Reevaluation: 07:00 Reevaluation 1ST: Unchanged Time of 2ND Reevaluation: 07:27 Reevaluation 2ND: Unchanged Consultation: PCP, Psychiatry Patient Education/Counseling: Diagnosis, Treatment, Prognosis, Need For Follow Up Family Education/Counseling: Diagnosis, Treatment, Prognosis, Need For Follow Up, No Family Present SEPSIS Sepsis Screen Date sepsis recognized/suspect: Mar 12, 2025 Time Sepsis recognized/suspect: 06 Recent Procedure: No On Antibiotic Therapy: No Respiratory Rate >20: No Heart Rate >90: No Temp<36 C (96.8 F) or >38.3 C: No SBP <90 or MAP <65 mmHG: No New Acute Mental Status Change: No Is the patient on CPAP, BIPAP,: No Vital Signs Date Time Temp Pulse Resp B/P (MAP) Pulse Ox O2 Delivery O2 Flow Rate FiO2 03/12/25 07:26 98.5 81 17 104/75 (85) 98 98.5 03/12/25 06:32 97.7 73 14 103/65 97 97.7 Departure 1 Departure Time of Disposition: : Impression: Primary Impression: Bipolar 1 disorder, mixed Additional Impression: Encounter for medication refill Disposition: HOME / SELF CARE / HOMELESS Condition: Fair Additional Instructions: You need to follow up with a psychiatrist e-Prescriptions Quetiapine Fumerate (Seroquel) 300 Mg Tab 1 TAB PO QPM for 30 Days, #30 TAB 1 Refill Prov: CATALINA YU MD 03/12/25 Discharged With: Self Critical Care Note Critical Care Time?: No Stability Stability form required: No Heart Score Heart Score: Heart Score Response (Comments) Value History N/A 0 EKG N/A 0 Age <45 0 Risk Factors 1 or 2 risk factors 1 Troponin N/A 0 Total 1 CATALINA YU MD Mar 12, 2025 07:29
== END 2025-03-12 07:30 | disposition home or self-care (01) ==
LOC: ER 06:29
DX: F31.60 Bipolar disorder, current episode mixed, unspecified (principal); F20.9 Schizophrenia, unspecified; Z76.0 Encounter for issue of repeat prescription